=== PATIENT | male | born 1990 | race Hispanic/Latino ===

== ENCOUNTER 2018-02-16 16:27 | Emergency (ER) | payer OTHER ==
[2018-02-16] MEDS ORDERED: Proparacaine 0.5% Opth 15 ML BOT ONE (16:53)
[2018-02-16] MEDS ORDERED: Fluorescein Opthalmic Strip ONE (16:53)
[2018-02-16] MEDS ORDERED: Erythromycin Base 0.5% Oint 1 GM TUBE ONE (17:06)
== END 2018-02-16 17:13 | disposition home or self-care (01) ==
LOC: SCSER 16:27
DX: T15.11XA Foreign body in conjunctival sac, right eye, initial encounter (principal)
CPT/HCPCS: 65222